=== PATIENT | male | born 1950 | race Caucasian/White ===

== ENCOUNTER → 2017-03-10 | Day surgery (SDC) | payer MEDICARE ==
--- NOTE | 2017-03-09 10:16 | Diagnostic Imaging Report ---
PROCEDURE:CHEST 2 VIEWS TECHNIQUE:PA and lateral chest INDICATION:Preoperative evaluation for leg surgery COMPARISON:None. FINDINGS: Mild left hemidiaphragm elevation. Lungs are clear. No pleural effusions. Normal heart size, mediastinal contour pulmonary vasculature for technique. Mild aortic tortuosity. Intact skeleton with age expected mild degenerative disc disease. CONCLUSION: No acute abnormality. Dictated by: Chidi Rodriguez M.D. on 03/09/2017 at 10:25 Electronically approved by: Chidi Rodriguez M.D. on 03/09/2017 at 10:25
[2017-03-09 10:22] LABS: BASOPHILS # (AUTO) 0.1 (0.0-0.1); BASOPHILS % 0.5 % (0.0-1.0); EOSINOPHILS # (AUTO) 0.3 (0.0-0.4); EOSINOPHILS % 2.7 % (0.0-6.0); HEMATOCRIT 40.3 % (38.2-49.6); LYMPHOCYTES # (AUTO) 2.4 (1.0-3.2); LYMPHOCYTES % 26.6 % (18.0-39.1); MEAN CORPUSCULAR HEMOGLOBIN 29.3 pg (28-32); MEAN CORPUSCULAR HGB CONC 32.3 g/dL (31-35); MEAN CORPUSCULAR VOLUME 90.8 fL (81-99); MONOCYTES # (AUTO) 0.7 (0.2-0.8); MONOCYTES % 7.9 % (4.4-11.3); NEUTROPHILS # (AUTO) 5.7 (2.1-6.9); NEUTROPHILS % 62.2 % (38.7-80.0); PLATELET COUNT 223 x10e3/uL (140-360); RED BLOOD COUNT 4.44 x10e6/uL (4.3-5.7); RED CELL DISTRIBUTION WIDTH 13.6 % (11.7-14.4)
[~2017-03-10] MED LIST: ACETAMINOPHEN 1000 MG/100 ML IV ONE; ATENOLOL100 MG PO; ATORVASTATIN CA20 MG PO; BACITRACIN 50,000 UNIT VIAL ONE; BUPIVACAINE HCL 0.5% INJ 30 ML VIAL INJ ONE; CEFAZOLIN SOD 2 GM/D5W 50ML 50 ML IV ONE; DEXAMETHASONE SOD PHOS INJ 4 MG/ML VIAL ONE; FENTANYL CITRATE/PF 100MCG/2 ML INJ ONE; GLYCOPYRROLATE INJ 1MG/ 5 ML SYR ONE; KETOROLAC TROMETHAMINE 30 MG/ML VIAL ONE; LEVALBUTER1.25 MG/3 INH; LIDOCAINE HCL 2% LOCAL INJ 5 ML SDV VIAL INJ ONE; MIDAZOLAM HCL 2 MG/2 ML VIAL ONE; MOMETASONE INH; ONDANSETRON HCL INJ 2 MG/ML VIAL ONE; PROAIR HFA INH8.5 GM INH; PROPOFOL IV EMULSION 10 MG/ML 20 ML VIAL ONE; ROCURONIUM BROMIDE 10 MG/ML 5ML VIAL ONE; SEVOFLURANE INHAL SOLN 250 ML PEN BTL ONE; SYMBICORT 80-10.2 GM INH
--- OUTSIDE RECORDS SUMMARY | 2017-03-10 09:15 | XMS REPORT ---
Author Author [facility] Address Unknown Phone Unavailable Care Team Providers Care Mime Artist Name Role Phone GUERA STRICKLAND Unavailable Unavailable Problems This patient has no known problems. Allergies, Adverse Reactions, Alerts This patient has no known allergies or adverse reactions. Medications This patient has no known medications. Results Test Description Test Time Test Comments Text Results Atomic Results Result Comments CHEST 2 VIEWS [place] [address] Patient Name: MAME WEAVER MR #: [id number] : 1950 Age/Sex: 66/M Req #: [id number] Adm Physician: Ordered by: GUERA STRICKLAND MD Report #: [id number] Location: OR Room/Bed: Procedure: [id number] DX/CHEST 2 VIEWS Exam Date: 03/09/17 Exam Time : 0950 REPORT STATUS: Signed PROCEDURE: CHEST 2 VIEWS TECHNIQUE: PA and lateral chest INDICATION: Preoperative evaluation for leg surgery COMPARISON: None. FINDINGS: Mild left hemidiaphragm elevation. Lungs are clear. No pleural effusions. Normal heart size, mediastinal contour pulmonary vasculature for technique. Mild aortic tortuosity. Intact skeleton with age expected mild degenerative disc disease. CONCLUSION: No acute abnormality. Dictated by: Matt Rodriguez M.D. on 2017 at 10:25 Electronically approved by: Matt Rodriguez M.D. on 02/2017 at 10:25 Dictated By: MATT RODRIGUEZ MD [id number] Transcribed By: FERNANDA on 03/09/17 1025 COPY TO: GUERA STRICKLAND MD
--- NOTE | 2017-03-13 10:22 | Operative Report ---
DATE OF PROCEDURE: March 10, 2017 PREOPERATIVE DIAGNOSIS: Ruptured right Achilles tendon. 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 PROCEDURE PERFORMED: Right Achilles tendon repair and autograft reconstruction. COSURGEON: Dr. Harley TABLET MAKING MACHINE OPERATOR HELPER: Sophia Vargas ANESTHESIA: General endotracheal intubation anesthesia. IV FLUIDS: As per the anesthesia record. BLOOD LOSS: Minimal. DESCRIPTION OF PROCEDURE: Mr. Davis was taken to the operating room and placed in the supine position on the [facility]. Following induction of general anesthesia, the patient was turned into a prone position on the operating room table. Evaluation of the patient's bilateral lower extremities demonstrated a palpable defect in the right Achilles tendon. The patient had a clear disconnection in the gastrocnemius musculature at its attachment to the heel. The patient's bilateral lower extremities were prepped and draped in the standard surgical fashion. The case was begun by creating an incision along the medial border of the right Achilles tendon in the region of the Achilles tendon tear. This incision was carried through the skin only. Blunt dissection was used to deepen the incision and isolate the Achilles tendon. The sural nerve was identified at this time and protected throughout the remainder of the case. The paratenon was opened, and proximally a thick stump of the Achilles tendon was identified. It was freed fully from the paratenon. The dissection was then carried distally, and only a minimal remnant of the Achilles tendon was identified at its insertion site into the calcaneus. Evaluation of the tendon demonstrated over 5 cm of proximal retraction. Examination of the tendon demonstrated a thickened and inflamed Achilles tendon. Blunt dissection was used to mobilize the tendon, and the patient continued to have approximately a 3 cm spatial defect between the end of the tendon and the tuberosity of the calcaneus. An incision was created proximally, and an Achilles recession was performed at the musculotendinous junction. This gained further length on the Achilles tendon. A turn-down flap of the thickened distal portion of the tendon was then attempted, but the condition of the tendon was so poor that a sliding autograft of the distal aspect of the Achilles tendon was therefore created. The insertion site was debrided to a bleeding bony bed. A suture anchor was inserted into the tuberosity of the calcaneus. The suture arms from the anchor were then woven through the Achilles tendon autograft as well as the nascent Achilles tendon, re-establishing the length and attachment of the Achilles to the tuberosity of the calcaneus. This repair was reinforced with further nonabsorbable FiberWire sutures as well as the other arms of the suture anchor. Once this was achieved, the graft was found to be pulled firmly into the tuberosity, and the length and tension of the Achilles tendon matched the nonaffected left lower extremity. This wound was copiously irrigated. The paratenon was closed over the tendon and graft. The remaining soft tissues were closed in a multilayer fashion. The patient was placed in a plantar-flexed splint, awakened and taken to postanesthesia care unit in stable condition. Job#: [id number]
== END | disposition home or self-care (01) ==
LOC: OR 09:12
PROVIDERS: ATTEND Specialist
DX: S86.021A Laceration of right Achilles tendon, initial encounter (principal); M76.61 Achilles tendinitis, right leg; S93.411A Sprain of calcaneofibular ligament of right ankle, initial encounter; S93.491A Sprain of other ligament of right ankle, initial encounter; Z68.39 Body mass index [BMI] 39.0-39.9, adult; M19.90 Unspecified osteoarthritis, unspecified site; J44.9 Chronic obstructive pulmonary disease, unspecified; I10 Essential (primary) hypertension; H91.90 Unspecified hearing loss, unspecified ear; F17.210 Nicotine dependence, cigarettes, uncomplicated; X58.XXXA Exposure to other specified factors, initial encounter; Y92.512 Supermarket, store or market as the place of occurrence of the external cause; Z01.810 Encounter for preprocedural cardiovascular examination; Z01.812 Encounter for preprocedural laboratory examination; Z01.818 Encounter for other preprocedural examination; Z91.81 History of falling
CPT/HCPCS: 27652; 36415; 71046; 85025; 93005; J1100; J1885; J2001; J2250; J2405